=== PATIENT | female | born 1990 | race Caucasian/White ===

== ENCOUNTER 2019-06-15 09:23 | Outpatient (RCR) | payer OTHER, SELFPAY ==
[2019-06-15] MEDS: RHO(D) IMMUNE GLOBULIN 300 MCG SYRINGE IM (14:51)
== END 2019-09-13 23:59 | disposition home or self-care (01) ==
LOC: ANHLAB 09:23
PROVIDERS: Visit Provider Obstetrics & Gynecology
DX: Z29.13 Encounter for prophylactic Rho(D) immune globulin (principal); O36.0930 Maternal care for other rhesus isoimmunization, third trimester, not applicable or unspecified; Z3A.28 28 weeks gestation of pregnancy
CPT/HCPCS: 36415; 90384; 96372; J2790

== ENCOUNTER 2019-07-12 16:23 | Outpatient (RCR) | payer OTHER, SELFPAY ==
[2019-07-12 16:49] VITALS: BP 118/73; PULSE 67
== END 2019-09-03 07:27 | disposition home or self-care (01) ==
LOC: ANHOBOP 16:23
PROVIDERS: Visit Provider Obstetrics & Gynecology
DX: O24.419 Gestational diabetes mellitus in pregnancy, unspecified control (principal); Z3A.00 Weeks of gestation of pregnancy not specified
CPT/HCPCS: 59025

== ENCOUNTER 2019-07-19 16:23 | Observation (INO) | payer OTHER, SELFPAY ==
[2019-07-19] MEDS: TERBUTALINE SULFATE 1 MG/ML VIAL 0.25 MG SUB-Q (17:31)
[2019-07-19 17:33] VITALS: BP 130/82; PULSE 80
[2019-07-19 17:46] VITALS: BP 121/66; PULSE 82
[2019-07-19 18:01] VITALS: BP 123/74; PULSE 87
[2019-07-19 18:16] VITALS: BP 119/73; PULSE 77
[2019-07-19 18:31] VITALS: BP 122/66; PULSE 89
[2019-07-19 18:46] VITALS: BP 122/74; PULSE 86
[2019-07-19 19:18] LABS: Fetal Fibronectin Positive
--- NOTE | 2019-07-19 19:25 | PC.NURSE ---
reported positive ffn to dr perez. also reported contractions have slowed down with 6 or less and hour and irritability category I tracing. pt denies feeling. new orders for procardia 10mg q 6 hours, pelvic rest and continue with scheduled nst.
--- NOTE | 2019-07-23 09:13 | PM.OBTRLD ---
OB - Triage/Final Diagnosis Evaluation Laboratory results: Laboratory Tests 07/19/19 17:38 Fibronectin Positive Final Diagnosis (1) Irregular contractions: Code(s): O62.2 - Other uterine inertia Status: Acute
== END 2019-07-19 20:00 | disposition home or self-care (01) ==
PROVIDERS: Admitting Provider Obstetrics & Gynecology Gynecology; PCP Family Medicine; Visit Provider Obstetrics & Gynecology Gynecology
DX: O62.2 Other uterine inertia (principal); Z3A.00 Weeks of gestation of pregnancy not specified
CPT/HCPCS: 82731; 96372; G0378; G0379; J3105

== ENCOUNTER 2019-08-30 08:50 | Outpatient (RCR) | payer OTHER, SELFPAY ==
[2019-07-16 11:21] VITALS: BP 124/57; PULSE 68
[2019-07-23 08:09] VITALS: BP 117/72; PULSE 82
[2019-07-26 17:04] VITALS: BP 129/68; PULSE 82
[2019-07-30 08:23] VITALS: BP 114/73; PULSE 73
[2019-08-02 17:03] VITALS: BP 120/66; PULSE 71
[2019-08-06 08:03] VITALS: BP 120/65; PULSE 75
[2019-08-09 17:09] VITALS: BP 126/73; PULSE 73
--- NOTE | 2019-08-13 07:55 | PC.NURSE ---
Temp 97.8.
[2019-08-13 08:23] VITALS: BP 128/82; PULSE 74
[2019-08-16 16:58] VITALS: BP 128/82; PULSE 74
[2019-08-20 08:03] VITALS: BP 113/77; PULSE 67
[2019-08-23 09:20] VITALS: BP 124/78; PULSE 71
[2019-08-27 08:03] VITALS: BP 122/75; PULSE 87
[2019-08-30 09:35] VITALS: BP 126/77; PULSE 78
== END 2019-09-03 07:27 | disposition home or self-care (01) ==
LOC: ANHOBOP 08:50
PROVIDERS: PCP Family Medicine; Visit Provider Obstetrics & Gynecology
DX: O24.419 Gestational diabetes mellitus in pregnancy, unspecified control (principal); Z3A.32 32 weeks gestation of pregnancy; Z3A.33 33 weeks gestation of pregnancy; Z3A.34 34 weeks gestation of pregnancy; Z3A.35 35 weeks gestation of pregnancy; Z3A.36 36 weeks gestation of pregnancy; Z3A.37 37 weeks gestation of pregnancy; Z3A.38 38 weeks gestation of pregnancy
CPT/HCPCS: 59025

== ENCOUNTER 2019-09-01 05:01 | Inpatient (IN) | payer OTHER, SELFPAY ==
[2019-09-01] VITALS (154 sets, daily range): BP systolic 98–148; BP diastolic 52–111; PULSE 61–99; RESP 18–20; TEMP 36.6–38; O2SAT 89–100; BMI 31.9
--- NOTE | 2019-09-01 05:01 | LDADM ---
This patient, Anita Morgan, was admitted to Labor/Delivery/Recovery 105 on 09/01/19 at 05:01. Plans for labor, pain management and were discussed with patient. Patient/family oriented to hospital policies and general routines including ID bracelet, bed and alarms, visiting hours, pain management, procedures, bathroom and other care routines, personal items, smoking policy, room service/diet and guest tray routines, infant security routines, and visiting hours. Patient/Family are encouraged to report perceived risks to care and to ask questions if they do not understand what they are told or what they should do. See OBIX for further documentation.
[2019-09-01 05:28] LABS: Glucose Point of Care 84 (65-105)
[2019-09-01] MEDS: OXYTOCIN 30 UNITS/NS 500 ML 30 UNITS/500 ML BAG 6 UNITS IV CONT (05:45)
[2019-09-01] MEDS: LACTATED RINGERS 1,000 ML 125 ML IV CONT ×2 (05:45→10:13)
[2019-09-01 05:47] LABS: Basophils Percent Auto 0.4 % (0.2-1.2); Eosinophils Absolute Auto 0.1 K/mm3 (0-0.3); Eosinophils Percent Auto 1.1 % (0-4.4); Hematocrit 40.6 % (37.0-47.0); Hemoglobin 13.2 g/dL (12.0-15.0); Immature Granulocyte Absolute 0.06 K/mm3 (0.00-0.031); Immature Granulocyte Percent A 0.6 % (0-0.5); Lymphocytes Absolute Auto 2.97 K/mm3 (0.9-3.2); Lymphocytes Percent Auto 28.6 % (18.3-44.2); Mean Corpuscular HGB Conc 32.5 g/dl (32-36); Mean Corpuscular Hemoglobin 28.7 pg (26-34); Mean Corpuscular Volume 88.3 fl (80-100); Mean Platelet Volume 10.5 fl (7.4-10.4); Monocytes Absolute Auto 1.1 K/mm3 (0.1-0.6); Neutrophils Absolute Auto 6.1 K/mm3 (1.3-6.7); Neutrophils Percent Auto 58.3 % (45.5-73.1); Platelet Count Result 190 k/mm3 (150-375); Red Cell Distribution Width 14.8 % (11.5-14.5); White Blood Count 10.4 K/mm3 (4.5-10.0)
[2019-09-01 10:19] LABS: Glucose Point of Care 74 (65-105)
--- NOTE | 2019-09-01 10:33 | WPDOBADMIT ---
Obstetrics - Admit Note Admission Note: record reviewed. No pertinent additions to the history and/or any subsequent changes in the physical findings that are not consistent with the expected course of the were found. Additions to the history and/or subsequent changes in the physical findings follow. Here for MIL. Cervix 5/50/-3. AROM with clear fluid. FHTs reactive. GDMA2.
[2019-09-01 14:16] LABS: Glucose Point of Care 76 (65-105)
[2019-09-01] MEDS: ONDANSETRON INJ 4 MG/2 ML VIAL IV PUSH (14:53)
--- NOTE | 2019-09-01 16:42 | PM.OBPRVD ---
OB - Delivery Note Procedure Delivery date: 09/01/19 Procedure: events: Gestational Diabetes Intrapartal events: None Induction method: AROM and per pitocin protocol Delivery monitor: external FHT and external uterine Route of delivery: Laceration description: Perineal - 1st Degree Delivery repair: vicryl (3-0 vicryl) Specimen: No Estimated blood loss (mL): 100 Anesthesia type: Epidural Disposition: floor [place] Baby Weeks of gestation at delivery: 39 Infant gender: Female presentation: vertex Placenta delivery description: Spontaneous cord vessel description: 3 Vessels score one minute: 9 score five minutes: 9
--- NOTE | 2019-09-01 16:42 | PM.OBDSVD ---
DS: Diagnosis Discharge Diagnosis (1) 39 weeks gestation of : Code(s): Z3A.39 - 39 weeks gestation of Status: Acute (2) GDM, class A2: Code(s): O24.419 - Gestational diabetes mellitus in , unspecified control Status: Acute (3) (normal spontaneous vaginal delivery): Code(s): O80 - Encounter for full-term uncomplicated delivery Status: Acute OB - DS: Summary OB Procedures : NST and Ultrasound OB Procedures Intrapartum: Spontaneous Vag Delivery OB Procedures: : None Peripartum Data Delivery Method: Natural Vaginal Laceration description: Perineal - 1st Degree complications: none Status at Discharge Functional status at discharge: independent ambulation Overall status at discharge: patient is progressing back to baseline Time Spent with Patient Time attestation: Total time spent providing and/or coordinating discharge services: DS: Data Data Completed and Pending Labs on day of discharge: Labs from last 24 hours 09/01/19 09/01/19 09/01/19 14:08 10:17 07:10 WBC RBC Hgb Hct MCV MCH MCHC RDW Plt Count MPV Immature Gran % (Auto) Neut % (Auto) Lymph % (Auto) [place] % (Auto) Eos % (Auto) Baso % (Auto) Lymph # (Auto) [place] # (Auto) Eos # (Auto) Baso # (Auto) Abs Immat Gran (auto) Absolute Neuts (auto) Absolute Nucleated RBC Nucleated RBC % POC Capillary Glucose 76 74 RPR Blood Type O Negative Antibody Screen Negative 09/01/19 09/01/19 09/01/19 05:25 05:25 05:25 WBC 10.4 H RBC 4.60 Hgb 13.2 Hct 40.6 MCV 88.3 MCH 28.7 MCHC 32.5 RDW 14.8 H Plt Count 190 MPV 10.5 H Immature Gran % (Auto) 0.6 H Neut % (Auto) 58.3 Lymph % (Auto) 28.6 [place] % (Auto) 11.0 H Eos % (Auto) 1.1 Baso % (Auto) 0.4 Lymph # (Auto) 2.97 [place] # (Auto) 1.1 H Eos # (Auto) 0.1 Baso # (Auto) 0.0 Abs Immat Gran (auto) 0.06 H Absolute Neuts (auto) 6.1 Absolute Nucleated RBC 0.0 Nucleated RBC % 0.0 POC Capillary Glucose 84 RPR Pending Blood Type Antibody Screen Discharge Plan Discharge Attending physician on discharge: Cari Davenport Discharging Clinician: Cari Davenport Anticipated Discharge Date/Time: 09/03/19 07:43 Patient Disposition: Home, Self-Care Activity: may shower and pelvic rest Diet: regular Patient Instructions: Antibiotic Form Stand Alone Forms: General Discharge Information Follow-up/Referrals: Tiago Antoine MD [Physician] - 6 Weeks Discharge Medications: New norethindrone (contraceptive) 0.35 mg tablet 0.35 mg PO DAILY Qty: 84 RF: 3 Continued ergocalciferol (vitamin D2) [Vitamin D2] 1,250 mcg (50,000 unit) Capsule 1 unit PO USEASDIRECTD RF: 0 sertraline 50 mg Tablet 50 mg PO DAILY RF: 0 lamotrigine [Lamictal] 100 mg Tablet 100 mg PO BID RF: 0 Discontinued Adult Probiotic 3 billion cell Capsule 1 cell PO DAILY RF: 0 ferrous sulfate 325 mg (65 mg iron) Tablet 325 mg PO DAILY RF: 0 docusate sodium [Colace] 100 mg Capsule 100 mg PO BID RF: 0 folic acid 800 mcg Tablet 1 mcg PO DAILY RF: 0 Humulin N NPH U-100 Insulin 100 unit/mL Suspension 64 unit SUBCUT HS RF: 0 Date of admission: 09/01/19 05:01 Primary Care Provider: Jay,Duane Stauffer Admitting Provider: Tiago Antoine Attending physician on admission: Tiago Antoine
[2019-09-01] MEDS: OXYTOCIN 30 UNITS/NS 500 ML 30 UNITS/500 ML BAG 125 UNITS IV CONT (17:07)
[2019-09-01] MEDS: lamoTRIgine 100 MG TABLET PO (18:43)
[2019-09-01] MEDS: BENZOCAINE 20% AER SPR (*SP) 56 GM CAN 1 SPRAY TOPICAL (18:44)
[2019-09-01] MEDS: WITCH HAZEL 40 PADS 1 PAD TOPICAL (18:44)
[2019-09-01] MEDS: IBUPROFEN 600 MG TABLET PO (18:44)
--- NOTE | 2019-09-01 19:13 | OBPPTRN ---
Patient transferred to post room #282 via wheelchair with baby in bassinet. Support person present. Oriented to unit, room, information board, rooming in, admission packet and security measures. Patient verbalizes understanding.
[2019-09-02] MEDS: IBUPROFEN 600 MG TABLET PO ×4 (00:34→23:35)
[2019-09-02 05:37] LABS: Hematocrit 36.3 % (37.0-47.0); Hemoglobin 11.8 g/dL (12.0-15.0)
--- NOTE | 2019-09-02 09:32 | WPDANLDPN2 ---
Anes-Prog Note L&D Date/Time: 09/02/19 09:32 Comfortable throughout: labor and delivery Neuraxial method: epidural Epidural/Spinal procedure site: clean & non-tender Neuro status: Neuro function grossly intact. Cardiovascular status: normal Respiratory status: normal Airway patency: baseline Mental status: baseline Post-Op hydration status: normal Vital Signs: Last Vital Signs Temp 98.1 F 09/01/19 21:58 Pulse 77 09/01/19 21:58 Resp 18 09/01/19 21:58 BP 121/74 09/01/19 21:58 Pulse Ox 99 09/01/19 21:58 I/O: Intake & Output 09/01/19 09/02/19 09/02/19 23:59 07:59 15:59 Intake Total 1500 Output Total 100 Balance 1400 Patient feedback: Patient satisfied with anesthetic care.
[2019-09-02] MEDS: DOCUSATE SODIUM 100 MG CAPSULE PO ×2 (09:48→16:35)
[2019-09-02] MEDS: SERTRALINE HCL 50 MG TABLET PO (09:48)
[2019-09-02] MEDS: MULTIVIT/MIN/PREN/FOL AC/IRON TABLET 1 TAB PO (09:48)
[2019-09-02] MEDS: ACETAMINOPHEN 325 MG TABLET 650 MG PO ×3 (09:49→23:33)
[2019-09-02 10:00] VITALS: BP 134/82; PULSE 87; RESP 18; TEMP 37; O2SAT 100; O2SAT 99
--- NOTE | 2019-09-02 10:00 | PC.NURSE ---
PT introductions made and plan of care discussed per post , breast feeding, daily care activities and pain management. PT verbalized understanding of such care.
--- NOTE | 2019-09-02 10:45 | PC.NURSE ---
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 Art Dealer was notified as well as Dr Allison. Both public area supervisor and Dr Allison stated that and the mother of the baby must wear masks for the next 4 days and to maintain a good handwashing policy and or wear gloves. was encouraged not to leave the pt's room till discharge. Both and pt verbalized understanding of such care.
--- NOTE | 2019-09-02 12:35 | PM.OBPNVD ---
OB - PN: Subj Subjective Date/time seen: 09/02/19 12:35 Patient comments: no complaints and pain well controlled baby status: doing well [place] feeding status: exclusively breast feeding Narrative: FOB informed from his work this am that he was exposed on 08/24 to +COVID19 patient. Patient and father to wear masks until 14 days post exposure OB - PN: Obj Data Labs CBC & Chem 7: 09/02/19 05:29 Labs: Laboratory Results - last 24 hr 09/01/19 09/02/19 09/02/19 14:08 05:29 05:30 Hgb 11.8 L Hct 36.3 L POC Capillary Glucose 76 Blood Type O Negative Antibody Screen Negative Screen Negative Baby's Blood Type O pos Baby's LENA Negative Doses of RhIg Required 1 OB - PN A/P Plan day: 1 Plan: routine care Time Spent With Patient Time: Total time spent is greater than 50% in coordination of care (as documented) at patient's floor/unit and/or counseling patient: Exam : Bimanual exam- vagina & uterus: other (Uterus firm, nt @U)
[2019-09-02] MEDS: lamoTRIgine 100 MG TABLET PO ×2 (16:34→23:34)
[2019-09-02 19:15] VITALS: BP 126/76; PULSE 74; RESP 12; TEMP 36.4
[2019-09-02] MEDS: RHO(D) IMMUNE GLOBULIN 300 MCG SYRINGE IM (19:34)
[2019-09-03 07:25] VITALS: BP 131/81; PULSE 70; RESP 16; TEMP 37; O2SAT 98
[2019-09-03 08:03] LABS: Rapid Plasma Reagin Non-Reactive (NonReactive)
[2019-09-03] MEDS: DOCUSATE SODIUM 100 MG CAPSULE PO (08:55)
[2019-09-03] MEDS: ACETAMINOPHEN 325 MG TABLET 650 MG PO (08:55)
[2019-09-03] MEDS: SERTRALINE HCL 50 MG TABLET PO (08:55)
[2019-09-03] MEDS: IBUPROFEN 600 MG TABLET PO (08:55)
[2019-09-03] MEDS: MULTIVIT/MIN/PREN/FOL AC/IRON TABLET 1 TAB PO (08:55)
[2019-09-03] MEDS: lamoTRIgine 100 MG TABLET PO (08:55)
--- NOTE | 2019-09-03 10:10 | PC.NURSE ---
Upon entering mother is tearful with concerns with . Mother reports will latch eagerly to right breast and struggles with left. Both nipples are tender, left slightly reddened. Infant had a tongue tie, with a frenulectomy yesterday. Mother reports latch has been better since procedure. Discussed should continue to improve with organization with tongue and latching. Discussed infant is at 10% weight loss, with good output and minimal jaundice at this time. Reviewed WNL for signs of adequate intake, and assured mother the first few days are learning on both. Reviewed feeding cues, frequencies, duration of feedings, feeding elimination flow sheet, and signs of adequate intake. Demonstrated stimulation techniques to wake infant for feeding. Assisted with to breast. Reviewed positioning/alignment in cross cradle, holding breast in U hold and guided asymmetrical latch on. Discussed rational for each. With in a few attempts, infant was able to latch correctly to left breast. Infant nursed eagerly, with steady draws and frequent swallowing noted. Reviewed signs of a correct latch, effective nursing and suck swallow ratio. Suggested mother stimulate to keep infant awake and nursing effectively to assist with maintaining deep latch with a more consistent suckling and increased milk transfer. Demonstrated how to adjust latch more deeply while feeding. Infant was able to maintain latch without discomfort to mother. Nipple care reviewed. Mother states she is very concerned with loss. Follow up visit is schedule for tomorrow and if she chooses she may supplement small amounts of EBM/formula (15mls) after breastfeedings. Reviewed blue feeding/elimination flow sheet with required feeding schedule and output. Mother s able to independently latch infant with appropriate positioning/alignment. She denies any nipple discomfort, is feeding as required and waking infant to feed if needed. has had 9 effective feedings in the past 24 hours, and is currently meeting outcomes for weight, output, jaundice and feeding frequencies. Mother states she feels confident to continue effective at home. Reviewed transition to breast milk, signs of adequate intake, and engorgement/relief. Instructed to call ICP if intake/output less than required. Reviewed regular medications mother is taking. Information provided per Rosanne. Reviewed community resources on the [facility] website and in the Mom/Baby guide. Information on outpatient services provided. Mother has no further questions at this time.
--- NOTE | 2019-09-03 10:16 | PC.NURSE ---
Patient viewed the discharge video Mother & Baby Care, The First Two Weeks . Patient was given the opportunity and encouraged to ask questions. Patient verbalized understanding of information shared and has been given the mother/baby guide for home reference.
--- NOTE | 2019-09-03 10:34 | PM.OBPNVD ---
OB - PN: Subj Subjective Date/time seen: 09/03/19 10:34 Patient comments: no complaints and pain well controlled baby status: doing well [place] feeding status: exclusively breast feeding OB - PN: Obj Data Labs CBC & Chem 7: 09/02/19 05:29 Labs: Laboratory Results - last 24 hr 09/01/19 09/02/19 05:25 05:30 RPR Non-reactive Blood Type O Negative Antibody Screen Negative Screen Negative Baby's Blood Type O pos Baby's LENA Negative Doses of RhIg Required 1 OB - PN A/P Plan day: 2 Plan: routine care, discharge home, follow up 6 weeks and other (plans micronor) Time Spent With Patient Time: Total time spent is greater than 50% in coordination of care (as documented) at patient's floor/unit and/or counseling patient: Exam : Bimanual exam- vagina & uterus: other (Uterus firm, nt @U)
[2019-09-04 10:48] VITALS: BP 126/84; PULSE 70; RESP 16; TEMP 37.5; O2SAT 99
== END 2019-09-03 12:19 | disposition home or self-care (01) | DRG 807 ==
LOC: ANHLDR 09-05 09:56 → ANHOB2 09-05 09:56
PROVIDERS: Admitting Provider Obstetrics & Gynecology; PCP Family Medicine; Visit Provider Obstetrics & Gynecology Gynecology
DX: O24.429 Gestational diabetes mellitus in childbirth, unspecified control (principal); Z37.0 Single live birth; Z3A.39 39 weeks gestation of pregnancy; Z23 Encounter for immunization; O70.0 First degree perineal laceration during delivery
CPT/HCPCS: 36415; 85014; 85018; 85025; 86592; 86850; 86900; 86901; 90384; A9270; J2405; J2590; J2790; J2795; J7120

== ENCOUNTER 2022-04-06 14:24 | Outpatient (CLI) | payer OTHER, SELFPAY ==
[2022-04-06] MEDS: RHO(D) IMMUNE GLOBULIN 300 MCG/2 ML SYRINGE IM (18:13)
== END 2022-04-06 14:25 | disposition home or self-care (01) ==
LOC: ANHLAB 14:29
PROVIDERS: PCP Family Medicine; Visit Provider Obstetrics & Gynecology Gynecology
DX: O36.0110 Maternal care for anti-D [Rh] antibodies, first trimester, not applicable or unspecified (principal); O26.851 Spotting complicating pregnancy, first trimester; Z3A.00 Weeks of gestation of pregnancy not specified
CPT/HCPCS: 36415; 84702; 85461; 86850; 86900; 86901; 90384; 96372; J2790

== ENCOUNTER → 2022-04-14 08:00 | Outpatient (CLI) | payer OTHER, SELFPAY ==
--- NOTE | ~2022-04-14 | US_ITS ---
US OB <=14 wk fetus w TV DATE: 04/14/2022 08:35 INDICATION: Vaginal spotting. History of miscarriage. TECHNIQUE: Real-time imaging and Doppler analysis. Transabdominal and transvaginal approaches COMPARISON: None FINDINGS: The uterus measures 9.8 cm height, 5.6 images AP and 6.7 cm transverse dimension. There is a normally shaped intrauterine gestational sac with normal surrounding hyperechogenicity con sistent with decidual reaction. pole and yolk sac are detected. heart rate 1 29 bpm. [place]-rump length measurement of 0.82 cm is consistent with 6 weeks 5 days +/- 4 days estimated gesta tional age with BERENICE of 12/03/2022. Approximately 3.5 x 11 mm subchorionic fluid collection consistent with small subchorionic hematoma. Right ovary 2.5 x 1.4 x 1.5 cm. Left ovary 2.0 x 1.7 x 1.2 cm. No pelvic mass lesion or abnormal free pelvic fluid collection. IMPRESSION: Small subchorionic hematoma Estimated gestational age is 6 weeks 5 days +/- 4 days with BERENICE of 12/03/2022 Reviewed, dictated and finalized at [facility]. Reviewed, dictated and finalized at [facility]. L BEARING MAKER
== END ==
PROVIDERS: PCP Obstetrics & Gynecology Gynecology; Visit Provider Obstetrics & Gynecology Gynecology
DX: O26.21 Pregnancy care for patient with recurrent pregnancy loss, first trimester (principal); Z3A.01 Less than 8 weeks gestation of pregnancy
CPT/HCPCS: 76801; 76817

== ENCOUNTER 2022-05-05 15:11 | Outpatient (CLI) | payer OTHER, SELFPAY ==
--- NOTE | ~2022-05-05 | US_ITS ---
EXAMINATION: US OB <= 14 weeks fetus DATE: 05/05/2022 16:15 INDICATION: Subchorionic hematoma TECHNIQUE: Real-time transabdominal and transvaginal obstetric ultrasound. FINDINGS: 04/14/2022 The uterus measures 13.3 x 8.9 x 7.8 cm. There is a subchorionic hematoma measuring 10 x 8 x 8 mm. Th ere is an intrauterine gestational sac, with pole identified. The crown rump length measures 3 .27 cm. heart tones are identified measuring 165 bpm. IMPRESSION: 1. SL IUP with an EGA of 9 weeks, 5 days (EDC by initial ultrasound of 12/03/2022). 2: Small subchorionic hematoma. Reviewed, dictated and finalized at location [facility]. GER CHANGE IMPRESSION: 1. SL IUP with an EGA of 9 weeks, 5 days (EDC by initial ultrasound of 12/04/19 23). 2: Small subchorionic hematoma.
== END 2022-05-05 15:12 | disposition home or self-care (01) ==
LOC: ANHIMG 15:14
PROVIDERS: PCP Family Medicine; Visit Provider Obstetrics & Gynecology Gynecology
DX: O36.8910 Maternal care for other specified fetal problems, first trimester, not applicable or unspecified (principal); Z3A.09 9 weeks gestation of pregnancy
CPT/HCPCS: 76801

== ENCOUNTER → 2022-06-01 15:37 | Outpatient (CLI) | payer OTHER, SELFPAY ==
--- NOTE | ~2022-06-01 | US_ITS ---
Pelvic ultrasound. Clinical History: Second trimester , subchorionic hematoma COMPARISON: 05/05/2022 Technique: Realtime transabdominal and transvaginal scanning of the pelvis was performed. Color flow Doppler and Doppler spectral analysis were performed. Findings: The uterus is anteverted, and contains an intrauterine gestation. [place]-rump length of 7.9 cm corresponds to an estimated gestational age of 13 weeks 6 days. heart rate is 166 bpm. No [place] bchorionic hemorrhage evident. Neither ovary seen. No adnexal mass seen. There is no evidence of free fluid in the cul de sac. Impression: Live intrauterine gestation with estimated gestational age of 13 weeks 6 days. heart rate is 16 6 bpm. No subchorionic hemorrhage seen. Reviewed, dictated and finalized at [facility]. TRY DRESSER Impression: Live intrauterine gestation with estimated gestational age of 13 weeks 6 days. heart rate is 166 bpm. No subchorionic hemorrhage seen.
== END ==
PROVIDERS: PCP Family Medicine; Visit Provider Advanced Practice Midwife
DX: O36.8910 Maternal care for other specified fetal problems, first trimester, not applicable or unspecified (principal); Z3A.13 13 weeks gestation of pregnancy
CPT/HCPCS: 76801

== ENCOUNTER 2022-09-07 08:35 | Outpatient (RCR) | payer OTHER, SELFPAY ==
[2022-09-07 09:52] LABS: Hemoglobin A1C 5.3 % (<5.7)
[2022-09-07 09:58] LABS: HIV 1/2 Ab P24 Ag Result Negative (Negative)
[2022-09-07 10:49] LABS: Vitamin D 25 Hydroxy 51.8 ng/mL
[2022-09-08 09:39] LABS: Hematocrit 34.7 % (37.0-47.0); Hemoglobin 11.2 g/dL (12.0-15.0)
[2022-09-08] MEDS: RHO(D) IMMUNE GLOBULIN 300 MCG/2 ML SYRINGE IM (16:52)
== END 2022-12-06 23:59 | disposition home or self-care (01) ==
LOC: ANHLAB 08:35
PROVIDERS: PCP Family Medicine; Visit Provider Obstetrics & Gynecology Gynecology
DX: Z11.4 Encounter for screening for human immunodeficiency virus [HIV] (principal); Z29.13 Encounter for prophylactic Rho(D) immune globulin; O36.0190 Maternal care for anti-D [Rh] antibodies, unspecified trimester, not applicable or unspecified; Z3A.00 Weeks of gestation of pregnancy not specified
CPT/HCPCS: 36415; 82306; 83036; 85014; 85018; 85461; 86703; 86850; 86900; 86901; 90384; 96372; G0432; J2790

== ENCOUNTER → 2022-10-19 10:00 | Outpatient (CLI) | payer OTHER, SELFPAY ==
--- NOTE | ~2022-10-19 | US_ITS ---
EXAMINATION: US OB follow up w BPP DATE: 10/19/2022 10:25 INDICATION: Gestational diabetes TECHNIQUE: Real-time ultrasound of the pelvis was performed. The interpreting radiologist was not pre sent for the study. COMPARISON: None. FINDINGS: There is a single living fetus in vertex presentation. The placenta is posterior. cardiac acti vity and movement are noted. heart rate is 128 beats per minute (bpm). The amniotic fluid index is 17.6 cm, which is normal. The following biometric data were obtained: BPD: 83 cm corresponds to gestational age 33 weeks 2 day(s). Head circumference: 297 cm corresponds to gestational age 32 weeks 6 day(s). Abdominal circumference: 298 cm corresponds to gestational age 33 weeks 6 day(s). Femur length: 66 cm corresponds to gestational age 33 weeks 6 day(s). Head circumference to abdominal circumference ratio: 1 (mean 0.95-1.11). Estimated weight: 2245 g plus or minus 337 g, 44.6%. Biophysical profile performed by the technologist: breathing (30 sec sustained breathing in 30 minutes): 2 out of 2 movement (3 gross body movements in 30 minutes: 2 out of 2 tone (one episode of ajvhegd-arbmshtyk-smawicl limb movement): 2 out of 2 Amniotic fluid pocket (2 cm): 2 out of 2 Total score: 8 out of 8 IMPRESSION: 1. Single living fetus in vertex presentation with heart rate of 128 bpm. 2. Normal placenta. 3. Biophysical profile 8 out of 8. 4. Gestational age by ultrasound of 33 weeks 4 day(s) with ultrasound estimated date of delivery (BERENICE ) of 12/03/2022. Please correlate with clinical information or other ultrasounds for most accurate ED D. 5. Estimated weight is 44.6th percentile by Hadlock criteria when 12/03/2022 is used as the est imated date of delivery (BERENICE). Reviewed, dictated and finalized at location [facility]. IMPRESSION: 1. Single living fetus in vertex presentation with heart rate of 128 bpm. 2. Normal placenta. 3. Biophysical profile 8 out of 8. 4. Gestational age by ultrasound of 33 weeks 4 day(s) with ultrasound estimated date of delivery (BERENICE) of 12/03/2022. Please correlate with clinical informati on or other ultrasounds for most accurate BERENICE. 5. Estimated weight is 44.6th percentile by Hadlock criteria when 023 is used as the estimated date of delivery (BERENICE).
== END ==
PROVIDERS: PCP Advanced Practice Midwife; Visit Provider Advanced Practice Midwife
DX: O24.414 Gestational diabetes mellitus in pregnancy, insulin controlled (principal); Z79.4 Long term (current) use of insulin; Z3A.33 33 weeks gestation of pregnancy
CPT/HCPCS: 76816; 76819

== ENCOUNTER 2022-11-19 07:25 | Outpatient (RCR) | payer OTHER, SELFPAY ==
[2022-10-08 08:49] VITALS: BP 127/77
[2022-10-12 08:40] VITALS: BP 126/79
[2022-10-15 07:40] VITALS: BP 126/68; PULSE 96
[2022-10-22 08:44] VITALS: BP 121/73; PULSE 82
[2022-10-26 08:40] VITALS: BP 118/72; PULSE 84
[2022-10-29 17:13] VITALS: BP 120/66; PULSE 84
[2022-11-05 07:48] VITALS: BP 119/74; PULSE 90
[2022-11-12 07:26] VITALS: BP 132/82; PULSE 83
[2022-11-12 07:31] VITALS: BP 126/76; PULSE 82
[2022-11-12 07:46] VITALS: BP 127/85; PULSE 90
[2022-11-12 07:49] VITALS: BP 126/76; PULSE 83
--- NOTE | ~2022-11-19 | US_ITS ---
EXAMINATION: US OB BPP wo non-stress DATE: 10/08/2022 08:56 CDT INDICATION: Gestational diabetes TECHNIQUE: Real-time transabdominal obstetric ultrasound. FINDINGS: Comparison to 06/01/2022 There is a single living fetus in vertex presentation. The placenta is maternal left without placent a previa. Amniotic fluid is subjectively normal. cardiac activity and movement is noted with a heart rate of 140 beats per minute. Biophysical profile: breathin of 2 movement: 2 of 2 tone: 2 of 2 Amniotic flud pocket: 2 of 2 Total score: 8 of 8 IMPRESSION: 1. Single living intrauterine in vertex presentation. 2: Total biophysical profile score of 8/8. Reviewed, dictated and finalized at location B.
[2022-11-19 07:55] VITALS: BP 127/80; PULSE 91
== END 2023-01-06 23:59 | disposition home or self-care (01) ==
LOC: ANHOBOP 07:25
PROVIDERS: PCP Family Medicine; Visit Provider Obstetrics & Gynecology Gynecology
DX: O24.419 Gestational diabetes mellitus in pregnancy, unspecified control (principal); Z3A.32 32 weeks gestation of pregnancy
CPT/HCPCS: 59025; 76819

== ENCOUNTER 2022-11-26 05:00 | Inpatient (IN) | payer OTHER, SELFPAY ==
[2022-11-26] VITALS (110 sets, daily range): BP systolic 101–150; BP diastolic 38–95; PULSE 62–129; RESP 16; TEMP 36.3–37.4; O2SAT 96–100; BMI 36.1
--- NOTE | 2022-11-26 05:30 | LDADM ---
This patient, Anita Morgan, was admitted to Labor/Delivery/Recovery 104 on 11/26/22 at 05:00. Plans for labor, pain management and were discussed with patient. Patient/family oriented to hospital policies and general routines including ID bracelet, bed and alarms, visiting hours, pain management, procedures, bathroom and other care routines, personal items, smoking policy, room service/diet and guest tray routines, infant security routines, and visiting hours. Patient/Family are encouraged to report perceived risks to care and to ask questions if they do not understand what they are told or what they should do. See OBIX for further documentation.
[2022-11-26] MEDS: ceFAZolin 2 GM/D5W 50 ML 2 GM/50 ML BAG IVPB (05:45)
[2022-11-26] MEDS: LACTATED RINGERS 1,000 ML 125 ML IV CONT ×3 (05:45→10:45)
[2022-11-26] MEDS: OXYTOCIN 30 UNITS/NS 500 ML 30 UNITS/500 ML BAG IV CONT (06:02)
[2022-11-26 06:10] LABS: Basophils Percent Auto 0.3 % (0.2-1.2); Eosinophils Absolute Auto 0.1 K/mm3 (0-0.3); Eosinophils Percent Auto 1.3 % (0-4.4); Hematocrit 34.3 % (37.0-47.0); Hemoglobin 10.7 g/dL (12.0-15.0); Immature Granulocyte Absolute 0.02 K/mm3 (0.00-0.031); Immature Granulocyte Percent A 0.2 % (0-0.5); Lymphocytes Percent Auto 28.5 % (18.3-44.2); Mean Corpuscular HGB Conc 31.2 g/dl (32-36); Mean Corpuscular Hemoglobin 25.8 pg (26-34); Mean Corpuscular Volume 82.9 fl (80-100); Monocytes Absolute Auto 1.2 K/mm3 (0.1-0.6); Monocytes Percent Auto 12.5 % (2.6-8.5); Neutrophils Absolute Auto 5.6 K/mm3 (1.3-6.7); Neutrophils Percent Auto 57.2 % (45.5-73.1); Platelet Count Result 282 k/mm3 (150-375); Red Blood Count 4.14 M/mm3 (4.2-5.4); Red Cell Distribution Width 14.8 % (11.5-14.5); White Blood Count 9.8 K/mm3 (4.5-10.0)
--- NOTE | 2022-11-26 06:16 | WPDOBADMIT ---
Obstetrics - Admit Note Admission Note: record reviewed. No pertinent additions to the history and/or any subsequent changes in the physical findings that are not consistent with the expected course of the were found. Additions to the history and/or subsequent changes in the physical findings follow. None.
[2022-11-26 06:21] LABS: Alanine Aminotransferase 20 U/L (6-35); Albumin Level 3.7 g/dL (3.5-5.1); Alkaline Phosphatase 144 U/L (38-126); Anion Gap 8 mmol/L (8-16); Aspartate Amino Transferase 25 U/L (14-36); Bilirubin,Total 0.2 mg/dL (0.2-1.3); Blood Urea Nitrogen 10 mg/dL (7-17); Calcium 8.8 mg/dL (8.4-10.2); Carbon Dioxide 23 mmol/L (22-30); Chloride 105 mmol/L (98-107); Estimated CRCL calculation 146 ml/min; Estimated Glomerular Filt Rate > 60; Glucose 82 mg/dL (65-110); Potassium 3.7 mmol/L (3.4-5.0); Sodium 136 mmol/L (137-145)
--- NOTE | 2022-11-26 06:35 | WPDANESEPP ---
Anes - Eval Pre Procedure Procedure: labor epidural Date/Time: 11/26/22 06:35 Preop Diagnosis: pain during labor Pre Op Diagnosis: IOL Patient Data Age: 32 Gender: F Height: 1.73 m Weight: 107.7 kg Last Vital Signs Pulse 93 11/26/22 06:31 BP 128/81 11/26/22 06:31 O2 Del Method Room Air 11/26/22 05:28 Allergies Allergy/AdvReac Type Severity Reaction Status Date / Time amoxicillin Allergy Unknown Rash Verified 11/04/22 14:29 Home Medications Medication Instructions Recorded Confirmed Type ergocalciferol (vitamin D2) 1,250 50,000 unit PO WEEKLY 07/26/19 11/26/22 History mcg (50,000 unit) capsule (Vitamin D2) lamotrigine 100 mg tablet 100 mg PO BID #60 tabs 03/05/22 11/26/22 Rx escitalopram oxalate 10 mg tablet 10 mg PO HS 10/26/22 11/26/22 History insulin NPH isoph U-100 human 100 38 unit subcut HS 10/26/22 11/26/22 History unit/mL subcutaneous suspension (Humulin N NPH U-100 Insulin (isophane susp)) vit no.95-ferrous 1 tablet PO DAILY 10/26/22 11/26/22 History fumarate 28 mg-folic acid 800 mcg tablet () metformin 500 mg tablet 500 mg PO DAILY 11/04/22 11/26/22 History aspirin 81 mg capsule 81 mg PO DAILY 11/19/22 11/26/22 History glyburide 5 mg tablet 5 mg PO HS 11/19/22 11/26/22 History Laboratory Tests 11/26/22 11/26/22 05:56 05:57 WBC 9.8 K/mm3 (4.5-10.0) RBC 4.14 L M/mm3 (4.2-5.4) Hgb 10.7 L g/dL (12.0-15.0) Hct 34.3 L % (37.0-47.0) MCV 82.9 fl (80-100) MCH 25.8 L pg (26-34) MCHC 31.2 L g/dl (32-36) RDW 14.8 H % (11.5-14.5) Plt Count 282 k/mm3 (150-375) MPV 10.0 fl (7.4-10.4) Immature Gran % (Auto) 0.2 % (0-0.5) Neut % (Auto) 57.2 % (45.5-73.1) Lymph % (Auto) 28.5 % (18.3-44.2) [place] % (Auto) 12.5 H % (2.6-8.5) Eos % (Auto) 1.3 % (0-4.4) Baso % (Auto) 0.3 % (0.2-1.2) Lymph # (Auto) 2.80 K/mm3 (0.9-3.2) [place] # (Auto) 1.2 H K/mm3 (0.1-0.6) Eos # (Auto) 0.1 K/mm3 (0-0.3) Baso # (Auto) 0.0 K/mm3 (0.0-0.1) Abs Immat Gran (auto) 0.02 K/mm3 (0.00-0.031) Absolute Neuts (auto) 5.6 K/mm3 (1.3-6.7) Absolute Nucleated RBC 0.0 K/mm3 (0.0-0.012) Nucleated RBC % 0.0 % (0.0-0.2) Sodium 136 L mmol/L (137-145) Potassium 3.7 mmol/L (3.4-5.0) Chloride 105 mmol/L (98-107) Carbon Dioxide 23 mmol/L (22-30) Anion Gap 8 mmol/L (8-16) BUN 10 mg/dL (7-17) Creatinine 0.60 L mg/dL (0.7-1.0) Estim Creat Clear Calc 146 ml/min Estimated GFR > 60 (59 - ) Glucose 82 mg/dL (65-110) Calcium 8.8 mg/dL (8.4-10.2) Total Bilirubin 0.2 mg/dL (0.2-1.3) AST 25 U/L (14-36) ALT 20 U/L (6-35) Alkaline Phosphatase 144 H U/L (38-126) Total Protein 7.0 g/dL (6.3-8.2) Albumin 3.7 g/dL (3.5-5.1) RPR Pending Patient hx anesthesia problems: none Family hx anesthesia problems: none Results Review: All pre-operative results and documents have been reviewed as part of the pre-operative evaluation. [facility] Past Medical History Medical History (Updated 11/26/22 @ 06:36 by Deja Lynn CRNA) Epilepsy Gestational diabetes PIH ( induced hypertension) Family History Family History Father Cardiovascular disease Mother Cardiovascular disease Social History Social History Smoking status: Never smoker Alcohol intake: current Alcohol use details: once in awhile Substance use: never Lack of Transportation: No Lack of Food: Never True Current Housing: I Have Housing Concerned About Future Housing: No Difficulty Paying Gas/Electric Bills: No Difficulty Paying for Meds: No Current
--- NOTE | 2022-11-26 07:36 | PM.OBPNLAB ---
Pain Control Date/time seen: 11/26/22 07:35 Pain control: tolerating well Comments: Feeling occasional contractions Pelvic Exam Dilation (cm): 5 Effacement (%): 70 station: -2 Amniotic membrane status: Intact Comments: head well applied to cervix. Contractions Monitor mode: External Contraction pattern: Irregular Contraction intensity: Mild Status status: Category l Assessment and Plan Pitocin rate (mU/min): 6 Assessment: induction ongoing Plan: continuous present management Comments: CNM at bedside. Plan of care disussed. Discussed option for amniotomy. Discussed risks, benefits, and expectations of breaking water. Patient is agreeable. Amniotomy performed and there was a large return of clear amniotic fluid. Patient tolerated procedure well. Anticipate vaginal . Dr. Davenport updated.
--- NOTE | 2022-11-26 07:39 | PM.OBPRVD ---
OB - Delivery Note Procedure Delivery date: 11/26/22 Procedure: Events: Gestational Diabetes (GDMA2), Positive Group B Strep (GBS) and Other (2 vessel cord) Induction method: Per Pitocin Protocol Delivery augmentation: Rupture of Membranes Delivery monitor: External FHT and External Uterine Route of delivery: Episiotomy description: None Laceration Description: None Specimen: Yes (placenta) Quantitative Blood Loss (ml): 50 Anesthesia type: Epidural Disposition: Floor Narrative: Patient arrived for induction of labor. She was given 1 dose of Ancef and oxytocin. Amniotomy was performed. She was given an epidural for analgesia. She progressed to complete dilation and pushed with contractions. She delivered the head over intact perineum followed by the anterior and posterior shoulders. After the remainder of the infant was delivered she was placed on the maternal abdomen in care is transferred to the nursery team. After 1 minute of life, the cord was doubly clamped and cut. Cord blood, cord gases, and cord segment were obtained. placenta was delivered intact in [place] presentation. There was excellent hemostasis. All Ray counts correct. Mother and baby skin to skin in the delivery room. Baby Date of : 11/26/22 Time of : 11:38 Weeks of gestation at delivery: 39 Infant gender: Female Weight (pounds): 0 ( weight unavailable at time of note, infant skin to skin with mother) presentation: compound (vertex) position: Left Occiput Anterior Placenta delivery description: Spontaneous Cord Vessel Description: 2 Vessels, Clamped/Cut and Delayed Cord Clamping score one minute: 8 score five minutes: 9
--- NOTE | 2022-11-26 07:39 | PM.OBDSVD ---
DS: Admitting Diagnosis Discharge Date 11/27/2022 Admitting Diagnosis IOL GDMA2 DS: Discharge Diagnosis Discharge Diagnosis (1) GDM, class A2: Code(s): O24.419 - Gestational diabetes mellitus in , unspecified control Status: Acute (2) (normal spontaneous vaginal delivery): Code(s): O80 - Encounter for full-term uncomplicated delivery Status: Acute (3) Patient is a currently breast-feeding mother: Code(s): Z39.1 - Encounter for care and examination of lactating mother Status: Acute OB - DS: Summary Hospital Course Hospital Course: Uncomplicated OB Procedures : NST and Ultrasound OB Procedures Intrapartum: Spontaneous Vag Delivery and GBS prophylaxis OB Procedures: : RHo (D) lg Peripartum Data Delivery Method: Natural Vaginal Laceration Description: None Episiotomy description: None complications: none Status at Discharge Functional status at discharge: independent ambulation Overall status at discharge: patient is progressing back to baseline Time Spent with Patient Time attestation: Total time spent providing and/or coordinating discharge services: DS: Data Data Completed and Pending Labs on day of discharge: Labs from last 24 hours 11/26/22 11/26/22 05:57 05:56 WBC 9.8 RBC 4.14 L Hgb 10.7 L Hct 34.3 L MCV 82.9 MCH 25.8 L MCHC 31.2 L RDW 14.8 H Plt Count 282 MPV 10.0 Immature Gran % (Auto) 0.2 Neut % (Auto) 57.2 Lymph % (Auto) 28.5 Dewey % (Auto) 12.5 H Eos % (Auto) 1.3 Baso % (Auto) 0.3 Lymph # (Auto) 2.80 Dewey # (Auto) 1.2 H Eos # (Auto) 0.1 Baso # (Auto) 0.0 Abs Immat Gran (auto) 0.02 Absolute Neuts (auto) 5.6 Absolute Nucleated RBC 0.0 Nucleated RBC % 0.0 Sodium 136 L Potassium 3.7 Chloride 105 Carbon Dioxide 23 Anion Gap 8 BUN 10 Creatinine 0.60 L Estim Creat Clear Calc 146 Estimated GFR > 60 Glucose 82 Calcium 8.8 Total Bilirubin 0.2 AST 25 ALT 20 Alkaline Phosphatase 144 H Total Protein 7.0 Albumin 3.7 RPR Pending Blood Type O Negative Antibody Screen Pending Discharge Plan Discharge Attending physician on discharge: Cari Davenport Discharging Clinician: Maki Mason Anticipated Discharge Date/Time: 11/27/22 09:42 Patient Disposition: Home, Self-Care Activity: may shower Diet: as tolerated Discharge Instructions: Continue taking your vitamin and any other supplements as previously directed (Examples: Iron, Vitamin D). You may take Tylenol 1000mg over the counter every 6 hours as needed for pain. Do not exceed 4000mg of Tylenol daily. You may continue using tucks pads and dermoplast spray if needed for a few more days. Education: Mom and Baby Guide Given to: Mother Follow-Up: Call your delivering provider's office for an appointment to be seen in: 4 Weeks Mom and baby should come to the [facility] for the follow-up appointment. Appointment Date/Time: November 29, 2022 at 1:30 pm What to expect at your follow-up visit: Physical Assessment Call [phone] if you are unable to keep your appointment time. BREAST CARE: * Wear a snug supportive bra. * For engorgement discomfort: Breast Feeding: * Apply warm moist washcloths * Express milk as needed to relieve engorgement * Wear loose clothing * For sore nipples: * Identify correct latch-on * Apply warm moist washcloths before and after nursing * Air dry nipples after nursing * May apply Lansinoh cream to nipples EPISIOTOMY/PERINEAL CARE: * Until bleeding stops, use your gay bottle after urinating * Change your pad frequently throughout the day * No tub baths until seen by your physician - You may shower ACTIVITY: * Rest as much as possible. * Do not exercise or lift anything heavier than your baby (such
[2022-11-26 10:35] LABS: Glucose Point of Care 72 mg/dl (65-105)
--- NOTE | 2022-11-26 11:19 | PC.NURSE ---
6005 - Met with the patient knowing her desires to breastfeed. She shared how she would like to feed her baby with exclusive and is hoping infants blood sugar is good as she has dealt with GDM this . Encouraged mother to place infant [id number] until the first feeding if infant is stable and to wait on the weight to help stabilize, reduce stress, and improve latching by allowing infant time to explore parent's chest using instincts. Education was shared on how to protect her milk supply with latching and/or using hand expression to remove milk if infant doesn't latch in the first hour, then finger feed colostrum to the infant to preserve breast focus. Mother states she understands how to hand express human milk. Resources provided with educational trifold for bonding and feeding infant. Mother voiced understanding of information and to call if there is a request for assistance.
[2022-11-26] MEDS: OXYTOCIN 30 UNITS/NS 500 ML 30 UNITS/500 ML BAG 125 UNITS IV CONT (12:08)
[2022-11-26] MEDS: IBUPROFEN 600 MG TABLET PO ×2 (12:45→19:43)
[2022-11-26 13:43] LABS: Rapid Plasma Reagin Non-Reactive (NonReactive)
[2022-11-26] MEDS: COSYNTROPIN 0.25 MG/ML VIAL 1 MG IV PUSH (13:57)
--- NOTE | 2022-11-26 15:32 | OBPPTRN ---
1426-Patient transferred to post room #291 via wheelchair. Support person present. Oriented to unit, room, information board, rooming in, admission packet and security measures. Patient verbalizes understanding.
--- NOTE | 2022-11-26 16:27 | PC.NURSE ---
[id number] Mother verbalizes she is able to independently latch with appropriate positioning/alignment. She denies any nipple discomfort and is responsively . is currently meeting outcomes for weight, output, jaundice and feeding frequencies of 8-12 times in 24 hours. Mother declines any additional assistance/education at this time. Mother is encouraged to call for assistance if her doesn?t latch or there is discomfort with latching. Mother voiced understanding of information shared and the mom reminded of the mom/baby guide for an additional resource. Reported to the primary RN.
[2022-11-26] MEDS: lamoTRIgine 100 MG TABLET PO (16:59)
[2022-11-26] MEDS: ACETAMINOPHEN 325 MG TABLET 650 MG PO (17:00)
[2022-11-26] MEDS: ESCITALOPRAM OXALATE 10 MG TABLET PO (21:16)
[2022-11-27] MEDS: ACETAMINOPHEN 325 MG TABLET 650 MG PO ×2 (00:02→13:18)
[2022-11-27 00:05] VITALS: BP 127/71; PULSE 71; RESP 16; TEMP 36.6; O2SAT 99
[2022-11-27 00:10] LABS: Glucose Point of Care 94 mg/dl (65-105)
[2022-11-27 02:40] VITALS: BP 122/74; PULSE 76; RESP 16; TEMP 36.4; O2SAT 100
[2022-11-27] MEDS: IBUPROFEN 600 MG TABLET PO ×2 (02:40→08:43)
[2022-11-27 03:09] LABS: Hematocrit 32.8 % (37.0-47.0); Hemoglobin 10.2 g/dL (12.0-15.0)
[2022-11-27] MEDS: ACETAMINOPHEN/BUTALBITAL/CAFFEINE 325-50-40 MG TABLET (FIORICET) 1 TAB PO ×2 (03:54→13:18)
[2022-11-27 08:14] LABS: Glucose Point of Care 93 mg/dl (65-105)
[2022-11-27 08:15] VITALS: BP 136/76; PULSE 72; RESP 16; TEMP 36.7; O2SAT 100
[2022-11-27] MEDS: MULTIVIT/MIN/PREN/FOL AC/IRON TABLET 1 TAB PO (08:42)
[2022-11-27] MEDS: lamoTRIgine 100 MG TABLET PO (08:42)
--- NOTE | 2022-11-27 11:40 | PM.OBPNVD ---
OB - PN: Subj Subjective Date/time seen: 11/27/22 11:20 Interval history: PPD 1 from . c/o spinal headache. Awaiting anesthesia re-evaluation. Patient comments: other baby status: doing well and nursing well feeding status: exclusively breast feeding OB - PN: Obj Data Labs 11/27/22 03:03 11/26/22 05:56 Labs: Laboratory Results - last 24 hr 11/26/22 11/27/22 11/27/22 05:57 00:01 03:03 Hgb 10.2 L Hct 32.8 L POC Capillary Glucose 94 RPR Non-reactive Blood Type O Negative Antibody Screen Negative Screen Negative Baby's Blood Type O pos Baby's LENA Negative Doses of RhIg Required 1 11/27/22 08:09 Hgb Hct POC Capillary Glucose 93 RPR Blood Type Antibody Screen Screen Baby's Blood Type Baby's LENA Doses of RhIg Required OB - PN A/P Plan day: 1 Plan: routine care Comments: Desires discharge home today if [place] improves with potential blood patch. Time Spent With Patient Time: Total time spent is greater than 50% in coordination of care (as documented) at patient's floor/unit and/or counseling patient: Review of Systems Review of Systems: All systems reviewed & are unremarkable except as noted in HPI and below Neurologic: Reports headache(s) (worse when upright)
[2022-11-27] MEDS: RHO(D) IMMUNE GLOBULIN 300 MCG/2 ML SYRINGE IM (13:19)
--- NOTE | 2022-11-27 13:30 | WPDANESEBPP ---
Anes - Epidural Blood Patch PN Date/Time: 11/27/22 13:30 Consent: I have discussed with the patient/family/POA, the rationale of a lumbar epidural autologous blood patch for the treatment of post-dural puncture headache (spinal headache), including associated potential risks, benefits, complications and side effects. I have also discussed more conservative treatment options such as intravenous hydration, caffeine and non-prescription analgesics. The patient/family/POA, understand(s) and wish(es) to proceed with epidural autologous blood patch as treatment for the patient's post-dural puncture headache. Time-Out: A pre-procedural Time-Out was completed immediately before starting the procedure and confirmed: Patient Identification, Site, Procedure, Patient Position and the Availability of Requisite Equipment. Clinical Indications: post dural puncture headache Epidural Insertion Note Patient position: sitting Skin prep: chlorhexidine Needle: 18 gauge Tuohy-Schliff Technique: loss of resistance (20 cc sterille autologous blood procured from left forearm instilled slowly headache resolved) Skin anesthesia: lidocaine 1% Observations: tolerated well Complications: none (pt instructed to lie in slight headup position with pillow under knees VSS)
--- NOTE | 2022-11-27 13:57 | WPDANLDPN2 ---
Anes-Prog Note L&D Date/Time: 11/27/22 13:57 Comfortable throughout: labor and delivery Neuraxial method: epidural Epidural/Spinal procedure site: clean & non-tender Neuro status: Neuro function grossly intact. Cardiovascular status: normal Respiratory status: normal Airway patency: baseline Mental status: baseline Post-Op hydration status: normal Vital Signs: Last Vital Signs Temp 98.1 F 11/27/22 08:15 Pulse 72 11/27/22 08:15 Resp 16 11/27/22 08:15 BP 136/76 11/27/22 08:15 Pulse Ox 100 11/27/22 08:15 O2 Del Method Room Air 11/27/22 02:40 Pain score (VAS): 10 I/O: Intake & Output 11/26/22 11/27/22 11/27/22 23:59 07:59 15:59 Intake Total 240 Balance 240 Post-procedural complaints: other Patient feedback: Patient satisfied with anesthetic care. known dural puncture.. epidural blood patch performed. see procedure note. Other findings: pt complains with positional headache
[2022-11-29 13:49] VITALS: BP 133/78; PULSE 89; RESP 18; TEMP 37.1; O2SAT 100
== END 2022-11-27 17:50 | disposition home or self-care (01) | DRG 807 ==
LOC: ANHLDR 07:41 → ANHOB2 11-27 15:06 → ANHLDR 11-29 12:55 → ANHOB2 11-29 12:55
PROVIDERS: Advanced Practice Midwife; Admitting Provider Obstetrics & Gynecology Gynecology; PCP Family Medicine; Visit Provider Obstetrics & Gynecology Gynecology
DX: O24.429 Gestational diabetes mellitus in childbirth, unspecified control (principal); Z37.0 Single live birth; Z3A.39 39 weeks gestation of pregnancy; O99.824 Streptococcus B carrier state complicating childbirth; O89.4 Spinal and epidural anesthesia-induced headache during the puerperium; O32.6XX0 Maternal care for compound presentation, not applicable or unspecified
CPT/HCPCS: 36415; 80053; 82948; 85014; 85018; 85025; 85461; 86592; 86850; 86900; 86901; 88307; 90384; A9270; J0690; J0834; J2590; J2790; J2795; J7120

== ENCOUNTER 2024-01-18 08:29 | Outpatient (CLI) | payer BC, SELFPAY ==
--- NOTE | ~2024-01-18 | MR_ITS ---
EXAMINATION: MR brain/brain stem wo con DATE: 01/18/2024 09:14 INDICATION: Epilepsy. TECHNIQUE: Magnetic resonance imaging (MRI) of the brain and brainstem was performed without intraven ous contrast. COMPARISON: Brain MRI 07/20/2017 FINDINGS: There is no intracranial hemorrhage, acute infarction, or abnormal intracranial mass lesion . The hippocampi are normal and symmetric. The ventricles are normal in size. There is mild mucosal t hickening in paranasal sinuses. The orbits are normal. The mastoid air cells are normal. IMPRESSION: 1. Normal brain. Reviewed, dictated and finalized at location A. IMPRESSION: 1. Normal brain.
== END 2024-01-18 08:30 ==
PROVIDERS: PCP Nurse Practitioner Family; Visit Provider Student in an Organized Health Care Education/Training Program
DX: G40.909 Epilepsy, unspecified, not intractable, without status epilepticus (principal)
CPT/HCPCS: 70551

== ENCOUNTER 2025-05-03 12:49 | Outpatient (CLI) | payer BC, SELFPAY ==
--- NOTE | 2025-05-07 14:21 | WPDNEUROLOGY ---
Neurology EEG Report General Information Date of Study: 05/03/25 TEST eeg
--- NOTE | 2025-05-08 09:57 | WPDNEUROLOGY ---
Neurology EEG Report General Information Date of Study: 05/03/25 TEST EEG DIAGNOSIS epilepsy CONDITION OF RECORDING awake and sleep. EEG NUMBER [id number] CLINICAL HISTORY 35 years old female who has not had a seizure since 2017. Patient had a grand mal seizure randomly. She stated she had a migraine that day, walked up stairs to lie down, and then woke up in the ambulance. Her said seizure lasted for 5minutes. She was postictal for 2 to 3 days where she does not remember much, she was very tired, disoriented. Patient currently takes lamotrigine 100mg twice a day and would like to stop taking it if she does not need it any longer. EEG DESCRIPTION Basic resting occipital frequency consists of low voltage 9 to 11 hertz per 2nd alpha activity admixed with low-voltage 15 to 18 hertz per 2nd beta activity. Hyperventilation produced poor buildup. Photic stimulation produced a normal drive. Multiple movement artifacts are noted throughout the tracing along with the muscle artifacts. Bilateral symmetrical sleep activities noted during different stages of sleep but without any focal slowing or paroxysmal phenomenon. Non paroxysmal. Nonfocal . nonlateralizing. IMPRESSION Normal record.
== END 2025-05-03 12:50 | disposition home or self-care (01) ==
PROVIDERS: PCP Nurse Practitioner Family; Visit Provider Psychiatry & Neurology Neurology
DX: G40.909 Epilepsy, unspecified, not intractable, without status epilepticus (principal)
CPT/HCPCS: 95816

== ENCOUNTER 2025-05-19 08:15 | Emergency (ER) | payer BC, SELFPAY ==
--- NOTE | 2025-05-19 08:18 | ED_ITS ---
HPI - URI/Sore Throat General Chief Complaint: Upper Respiratory Infection Stated Complaint: Strep Symptoms Time Seen by Provider: 05/19/25 08:15 Source: patient Mode of arrival: ambulatory Limitations: no limitations History of Present Illness HPI Narrative: patient is a 35-year-old female who presents with sore throat for 2 days. Patient has history of strep and being a strep carrier. Denies any fever, chill s, nausea, vomiting, diarrhea. Has been taking [id number] medication no relief. Related Data Home Medications ?Medication ?Instructions ?Recorded ?Confirmed ?Last Taken ?Type vit no.95-ferrous 1 tablet PO DAILY 10/26/22 05/01/25 1 Week Ago History fumarate 28 mg-folic acid 800 mcg ~ tablet () Lactobacillus 25 billion cap PO 11/02/23 05/01/25 Unk nown History cell-Bifido 25 billion [id number] capsule cholecalciferol (vitamin D3) 125 125 mcg PO DAILY 08/2105/01/25 Unknown History mcg (5,000 unit) capsule Allergies Allergy/AdvReac Type Severity Reaction Status Date / Time amoxicillin Allergy Unknown Rash Verified 05/01/25 12:58 Review of Systems Review of Systems: All systems reviewed & are unremarkable except as noted in HPI and below Constitutional: Constitutional: Denies body ache(s), Denies fever(s), Denies headache(s), Denies malaise and Denies weakness Eyes: Eyes: Denies loss of vision ENT: Denies otalgia, Denies headache(s), Denies nasal congestion, Denies sinus pain and Reports sore throat Cardiovascular: Cardiovascular: Denies chest pain, Denies irregular heart rhythm and Denies dyspnea Respiratory: Respiratory: Denies cough and Denies dyspnea Gastrointestinal: Gastrointestinal: Denies abdominal pain, Denies melena, De nies hematochezia, Denies diarrhea, Denies nausea and Denies vomiting Musculoskeletal: Musculoskeletal: Denies back pain, Denies myalgias and Denies arthralgias Integumentary/Breasts: Skin/Breast: Denies pruritus and Denies rash Neurologic: Denies headache(s), Denies loss of vision and Denies weakness Psychiatric: Psychiatric: Reports no additional psychiatric complaints PMFSH Past Medical History Medical History Gestational diabetes PIH ( induced hypertension) Epilepsy one seizure noted, currently on lamotrigine without reoccurrence. Family History Family History Father Cardiovascular disease Mother Cardiovascular disease Social History Social History Smoking status: Never smoker Alcohol intake: current Alcohol use details: once in awhile Substance use: never Lack of Transportation: No Lack of Food: Never True Current Housing: I Have Housing Concerned About Future Housing: No Difficulty Paying Gas/Electric Bills: No Difficulty Paying for Meds: No Currently Unemployed: No Education: Master's Degree or Higher Difficulty w/ Childcare or Family Care: No Gender identity (if verbalized by the patient): Female Spiritual care concerns: No Comments At time of signature, agree with nursing past medical, surgical, social and family history. There is no relevant family history pertinent to the presenting complaint. Exam Const: General: cooperative, healthy appearing, comfortable, no acute distress and well nourished Nutritional Appearance: well nourished Orientation/consciousness: patient oriented x3 Limitations: no limitations HENMT: Head: normal to inspection, normocephalic and atraumatic Ears: hearing grossly normal bilaterally, external ears normal, TM's normal bilaterally and EAC's normal Face/Nose/Sinus: Normal external nose present, Normal nares present, Normal nasal mucous membranes and turbinates present, Normal septum present, normal facial exam, sinuses nontender and face symmetric Face and sinus: normal facial exam, sinuses nontender and face symmetric Mouth: Yes Normal oral and palatal mucosa present, Yes lip normal and Yes moist mucous membranes Teeth and gingiva: dentition normal Throat: uvula midline, abnormal tonsil bilateral erythema, exudates and hypertrophy 3+ and posterior oropharynx abnormal erythema Eyes: General: appearance normal, both eyes and all related structures A lignment and Position: alignment normal and position normal Periorbital: periorbital findings normal Eyelids: eyelids normal Pupils: Equal, round and reactive pupils present Neck: Neck: normal visual inspection, full ROM, no lymphadenopathy and supple Chest: Chest palpation & inspection: normal inspection of the chest and normal palpation of entire chest wall Resp: Effort & Inspection: normal respiratory effort and able to speak in complete sentences Auscultation: clear to auscultation bilaterally, no crackles, no rales, no rhonchi and no wheezes Cardio: Rate: regular rate Rhythm: regular rhythm Heart sounds: S1 normal heart sound present and S2 normal heart sound present GI: Inspection: normal to inspection Skin: General skin exam: normal color and no rashes or lesions noted Neuro: General: patient oriented x3 and moves all extremities Cranial nerves: Yes Equal, round and reactive pupils present Speech: normal speech Gait exam (Neuro): Normal gait present Extrem: General: normal to inspection, full ROM and no edema Psych: Appearance: grossly normal and well kempt Mental Status: mental status grossly normal Speech and movement: Normal speech and movement present Affect: normal affect Attitude: cooperative Thought process: Normal thought process present Course Course Emergency Course: Patient is aware of diagnosis, understands and agrees to treatment plan. Anticipatory guidance given. Patient agrees to follow-up as directed and is aware of reasons to seek care at the emergency department. Portions of this record may have been created with voice recognition software Level of Care: Express Care Visit Vital Signs Vital signs: Vital Signs Temperature 36.3 C L 05/19/25 09:11 Pulse Rate 105 H 05/19/25 09:11 Respiratory Rate 16 05/19/25 09:11 Blood Pressure 131/82 05/19/25 09:11 Pulse Oximetry 98 05/19/25 09:11 Temperature 36.3 C L 05/19/25 09:11 Pulse Rate 105 H 05/19/25 09:11 Respiratory Rate 16 05/19/25 09:11 Blood Pressure 131/82 05/19/25 09:11 Pulse Oximetry 98 05/19/25 09:11 [facility] Narrative Medical decision making narrative: Patient positive for strep throat. Will treat with antibiotics. Education provided to limit reexposure Patient well hydrated appearing, in no respiratory distress, hemodynamically stable. Recommend supportive care. The patient is stable at time of discharge the clinical impression was discussed and the patient was given the opportunity to ask questions, which were addressed as completely as possible given the information available at present. Anticipatory guidance and return to care precautions were discussed and the importance of primary care follow-up was stressed and encouraged. The patient voiced understanding of the plan, indications to return, and the need for follow-up. Exam findings show no acute concerns or changes Patient is appropriate for outpatient treatment and follow-up. Differential Diagnosis Differential Diagnosis: Differential diagnosis considered: Mayorga virus, strep pharyngitis, allergic rhinitis, upper respiratory tract infection, sinusitis, rhinosinusitis, nasopharyngitis. viral pharyngitis, otitis media, otitis externa, otitis effusion, foreign body, cerumen impaction, viral syndrome, and influenza.? Medical Records I have reviewed the following patient records and this information was taken into consideration when formulating the assessment and plan.: previous clinic visits Lab Data MDM Lab Attestation statement: I personally reviewed the patient's lab results. Labs: Lab Results 05/19/25 05/19/25 Range/Units 08:34 08:50 POC Influenza A Ag Negative (Negative) POC Influenza B Ag Negative (Negative) POC SARS CoV-2 Ag Negative (Negative) POC Grp A Strep Screen Positive (Negative) Discharge Plan Discharge Clinical Impression: Strep throat Patient Disposition: Home Condition: Stable Instructions: Strep Throat (ED) Additional Instructions: Your rapid strep swab was positive today at [facility]. COVID and flu were both negative After 24 hours on antibiotics throw tooth brush away and start using a new one. Wash your sheets and cup/water bottle that is used daily. Do not share drinks. Take Motrin alternating with Tylenol for pain and fever alternating every 3 hours. 8 AM: Tylenol 11 AM: Ibuprofen 2 PM: Tylenol 5 PM: Ibuprofen 8 PM: Tylenol 11 PM: Ibuprofen 2 AM: Tylenol 5 AM: Ibuprofen Increase fluids, avoid caffeine. Other symptomatic treatments include: -Antihistamine medication such as Benadryl at night and Zyrtec/Claritin/Teena during the day can help improve symptoms. -Use Flonase twice a day for 5 days then daily to help reduce the inflammation and dry up your sinuses. -You can also use Sudafed or Mucinex. Be sure to drink plenty of water with these medications at least 8 ounces with every dose and it is important to drink 8 to 10 glasses of water per day. Water is a natural decongestant -Eat and drink things that are easy to swallow, like tea or soup, or popsicles. -Oral rinses such as: Salt water gargles and/or may use topical anesthetic (eg. Chloraseptic spray) or lozenges to relieve dryness or throat pain). -Frequent hand washing or hand baby registry sales consultant is one of the best ways to prevent spr ead of infection. -Using a vaporizer or humidifier at night will also help thin secretions and help with coughing up phlegm. -Follow up with primary care provider in 3-5 days if condition is not improving - For new or worsening symptoms go directly to the nearest ER Patient Language: [place] Prescriptions: New cephalexin 500 mg capsule 500 mg PO Q12H 10 Days Qty: 20 0RF No Action lamotrigine 100 mg tablet 100 mg PO BID Qty: 180 4RF cholecalciferol (vitamin D3) 125 mcg (5,000 unit) capsule 125 mcg PO DAILY Lacto no.29-Jhzlfd-QIB-larch 25B cell-25B cell-50 mg capsule PO PNV no.95-ferrous fumarate-FA [] 28 mg iron- 800 mcg Tablet 1 tablet PO DAILY escitalopram oxalate 10 mg tablet 10 mg PO HS Qty: 90 0RF Rx Instructions: NEEDS APPOINTMENT FOR FURTHER REFILLS Follow-up/Referrals: Janneth Lester, VITO, [facility] [Primary Care Provider, Family Practice] - 3 Days Stand Alone Forms: Work/School Release IP Time of Disposition: 08:48
[2025-05-19 08:36] LABS: EDSTREPNEGPOS1 Positive (Negative)
[2025-05-19 08:52] LABS: EDCOVIDSCREEN Negative (Negative); EDINFLUASCREEN Negative (Negative); EDINFLUBSCREEN Negative (Negative)
[2025-05-19 09:11] VITALS: BP 131/82; PULSE 105; RESP 16; TEMP 36.3; O2SAT 98
== END 2025-05-19 08:52 | disposition home or self-care (01) ==
PROVIDERS: Emergency Provider Nurse Practitioner Family; PCP Nurse Practitioner Family
DX: J02.0 Streptococcal pharyngitis (principal); Z20.822 Contact with and (suspected) exposure to COVID-19; G40.909 Epilepsy, unspecified, not intractable, without status epilepticus
CPT/HCPCS: 87426; 87804; 87880; 99213; G0463